=== PATIENT | male | born 1960 | race Caucasian/White ===

== ENCOUNTER 2016-12-26 22:35 | Inpatient (IN) | payer BC ==
[~2016-12-26] VITALS: Ht 180.3 cm; Wt 116.2 kg
[2016-12-26 23:22] LABS: BASO # 0.1 (0.0-0.2); BASO % 0.7 % (0.0-2.0); EOS # 0.1 (0.0-0.7); EOS % 0.5 % (0-4.0); GRAN # 11.7 (1.4-6.5); GRAN % 90.8 % (42.2-75.2); HEMOGLOBIN 16.8 g/dl (13.5-18.0); LYMPH # 0.5 (1.2-3.4); LYMPH % 4.1 % (20.0-51.0); MEAN CELL VOLUME 87 fl (80.0-100.0); MEAN CORPUSCULAR HEMOGLOBIN 29 pg (27.0-31.0); MEAN CORPUSCULAR HGB CONC 34 g/dl (33.0-37.0); MEAN PLATELET VOLUME 9.8 fl (7.4-10.4); MONO # 0.4 (0.1-0.6); MONO % 3.4 % (1.7-9.3); PLATELET COUNT 231 K/mm3 (130-400); RED BLOOD COUNT 5.75 M/mm3 (4.20-5.60); WHITE BLOOD COUNT 12.8 K/mm3 (4.8-10.8)
[2016-12-26 23:27] LABS: ADJUSTED CALCIUM 9.4 mg/dL (8.4-10.2); ALANINE AMINOTRANSFERASE 41 U/L (21-72); ALBUMIN 4.3 gm/dL (3.5-5.0); ALKALINE PHOSPHATASE 80 U/L (50-136); ANION GAP 11 mmol/L (7-16); BLOOD UREA NITROGEN 12 mg/dL (9-20); CALCIUM 9.6 mg/dL (8.4-10.2); CARBON DIOXIDE 26 mmol/L (22-30); CHLORIDE 103 mmol/L (98-107); CREATININE, serum 0.92 mg/dL (0.66-1.25); GLUCOSE 123 mg/dL (74-106); POTASSIUM 3.9 mmol/L (3.4-5.0); SODIUM 140 mmol/L (137-145); TOTAL PROTEIN 7.1 gm/dL (6.4-8.2)
[2016-12-26 23:39] LABS: INR 1.1 (0.8-3.0); PROTHROMBIN TIME 12.1 SECONDS (9.7-12.8)
[2016-12-26 23:40] LABS: TROPONIN-I < 0.012 ng/mL (0.000-0.034)
[2016-12-26 23:42] LABS: PARTIAL THROMBOPLASTIN TIME 28.2 SECONDS (26.0-37.0)
[2016-12-27] VITALS (265 sets, daily range): BP systolic 104–125; BP diastolic 66–85; PULSE 78–103; TEMP 96–101.2; O2SAT 85–100
[2016-12-27 00:50] LABS: COLLECTION METHOD CLEAN CATCH
[2016-12-27 00:56] LABS: MUCOUS Present /lpf; PH 6 (5-8); SQUAMOUS EPITHELIAL None Seen /hpf; URINE APPEARANCE Clear; URINE BACTERIA None Seen /hpf; URINE BILIRUBIN Negative (NEGATIVE); URINE BLOOD 1+ (NEGATIVE); URINE COLOR Yellow; URINE GLUCOSE Negative (NEGATIVE); URINE KETONE Negative (NEGATIVE); URINE LEUKOCYTE ESTERASE Trace (NEGATIVE); URINE PROTEIN(semi-quant) Negative (NEGATIVE); URINE UROBILINOGEN Negative (NEGATIVE)
[2016-12-27] MEDS ORDERED: TYLENOL 500MG500 MG PO (04:22)
[2016-12-27 05:37] LABS: BASO # 0.1 (0.0-0.2); BASO % 0.5 % (0.0-2.0); GRAN # 15.8 (1.4-6.5); GRAN % 91.1 % (42.2-75.2); HEMATOCRIT 46.2 % (42.0-52.0); HEMOGLOBIN 15.5 g/dl (13.5-18.0); LYMPH # 0.4 (1.2-3.4); LYMPH % 2.1 % (20.0-51.0); MEAN CELL VOLUME 88 fl (80.0-100.0); MEAN CORPUSCULAR HEMOGLOBIN 30 pg (27.0-31.0); MEAN CORPUSCULAR HGB CONC 34 g/dl (33.0-37.0); MEAN PLATELET VOLUME 9.7 fl (7.4-10.4); MONO % 5.5 % (1.7-9.3); PLATELET COUNT 224 K/mm3 (130-400); RED BLOOD COUNT 5.23 M/mm3 (4.20-5.60); WHITE BLOOD COUNT 17.3 K/mm3 (4.8-10.8)
[2016-12-27 05:49] LABS: CALCIUM 9.1 mg/dL (8.4-10.2); CREATININE, serum 0.98 mg/dL (0.66-1.25); POTASSIUM 4.3 mmol/L (3.4-5.0)
[2016-12-28 06:09] VITALS: BP 143/77; PULSE 85; TEMP 98.6
[2016-12-28 09:51] VITALS: BP 133/73; PULSE 80; TEMP 97.7
[2016-12-28 11:38] LABS: HEMATOCRIT 44.2 % (42.0-52.0); HEMOGLOBIN 14.7 g/dl (13.5-18.0); MEAN CELL VOLUME 89 fl (80.0-100.0); MEAN CORPUSCULAR HEMOGLOBIN 30 pg (27.0-31.0); MEAN CORPUSCULAR HGB CONC 33 g/dl (33.0-37.0); MEAN PLATELET VOLUME 10.1 fl (7.4-10.4); PLATELET COUNT 208 K/mm3 (130-400); RED BLOOD COUNT 4.96 M/mm3 (4.20-5.60); WHITE BLOOD COUNT 9.6 K/mm3 (4.8-10.8)
[2016-12-28 11:59] LABS: CALCIUM 9.3 mg/dL (8.4-10.2); CREATININE, serum 0.84 mg/dL (0.66-1.25)
[2016-12-28 12:42] VITALS: BP 131/78; PULSE 79; TEMP 97.5
[2016-12-28 16:22] VITALS: BP 120/74; PULSE 73; TEMP 98.6
[2016-12-28 20:30] VITALS: BP 127/73; PULSE 76; TEMP 99.5
[2016-12-29 02:29] VITALS: BP 117/81; PULSE 80; TEMP 99.1
[2016-12-29 06:08] VITALS: BP 139/80; PULSE 70; TEMP 97.8
[2016-12-29 09:11] VITALS: TEMP 98.6
[2016-12-29 09:22] LABS: BASO % 0.6 % (0.0-2.0); EOS % 0.6 % (0-4.0); GRAN # 4.5 (1.4-6.5); HEMATOCRIT 45.2 % (42.0-52.0); HEMOGLOBIN 15.1 g/dl (13.5-18.0); LYMPH # 1.2 (1.2-3.4); MEAN CELL VOLUME 88 fl (80.0-100.0); MEAN CORPUSCULAR HEMOGLOBIN 29 pg (27.0-31.0); MEAN CORPUSCULAR HGB CONC 33 g/dl (33.0-37.0); MEAN PLATELET VOLUME 10.6 fl (7.4-10.4); MONO # 1.1 (0.1-0.6); MONO % 15.4 % (1.7-9.3); PLATELET COUNT 217 K/mm3 (130-400); RED BLOOD COUNT 5.13 M/mm3 (4.20-5.60); WHITE BLOOD COUNT 6.8 K/mm3 (4.8-10.8)
[2016-12-29 09:33] LABS: ADJUSTED CALCIUM 9.3 mg/dL (8.4-10.2); ALBUMIN 3.7 gm/dL (3.5-5.0); BILIRUBIN,TOTAL 0.7 mg/dL (0.0-1.0); CALCIUM 9.1 mg/dL (8.4-10.2); POTASSIUM 3.9 mmol/L (3.4-5.0); TOTAL PROTEIN 6.8 gm/dL (6.4-8.2)
[2016-12-29 09:54] VITALS: BP 126/72; PULSE 77; TEMP 98.2
[2016-12-29 10:28] LABS: CREATININE, serum 0.92 mg/dL (0.66-1.25)
[2016-12-29] MEDS ORDERED: BACTRIM DS 8001 TAB PO (10:40)
== END 2016-12-29 13:20 | disposition home or self-care (01) | DRG 872 ==
LOC: COL.ER 22:35 → ICU 12-27 01:17 → MEDICAL 12-27 01:17 → ICU 12-27 01:17 → SURG 12-27 01:17
PROVIDERS: Family Medicine; Internal Medicine; Nurse Practitioner Family
DX: A41.9 Sepsis, unspecified organism (principal); N39.0 Urinary tract infection, site not specified; R07.89 Other chest pain; Z88.0 Allergy status to penicillin
CPT/HCPCS: 99223-AI; 99232-AI; 99239; J0696; J1170; J1580; J7030; Q9967

== ENCOUNTER → 2017-01-17 | Outpatient (REF) ==
[~2017-01-17] MED LIST: BACTRIM DS 8001 TAB PO; TYLENOL 500MG500 MG PO
[2017-01-17 12:06] LABS: THYROID STIMULATING HORMONE 2.57 uIU/mL (0.465-4.680)
== END ==
LOC: ZLAB.WCH 11:09
PROVIDERS: Family Medicine
DX: Z01.89 Encounter for other specified special examinations (principal)

== ENCOUNTER 2019-04-22 08:28 | Emergency (ER) | payer BC ==
[~2019-04-22] VITALS: Ht 180.3 cm; Wt 128.6 kg
[2019-04-22 08:42] VITALS: BP 141/83
[2019-04-22] MEDS ORDERED: PREDNISONE20 MG PO (08:48)
[2019-04-22] MEDS ORDERED: OMNICEF 300MG300 MG PO (08:48)
[2019-04-22] MEDS ORDERED: CHERATUSSIN AC240 ML PO (08:49)
[2019-04-22 09:28] VITALS: PULSE 90; TEMP 97.8
[2019-04-22] MEDS ORDERED: PRIL40 PO (09:34)
== END 2019-04-22 09:40 | disposition home or self-care (01) ==
LOC: COL.ER 08:28
DX: R05 Cough (principal); J45.909 Unspecified asthma, uncomplicated; Z85.46 Personal history of malignant neoplasm of prostate

== ENCOUNTER 2019-08-28 13:14 | Emergency (ER) | payer BC ==
[~2019-08-28] VITALS: Ht 180.3 cm; Wt 127.3 kg
[~2019-08-28 13:14] MED LIST changes: +CHERATUSSIN AC240 ML PO; +OMNICEF 300MG300 MG PO; +PREDNISONE20 MG PO; +PRIL40 PO
[2019-08-28 13:17] VITALS: BP 122/82; TEMP 97.6
[2019-08-28] MEDS ORDERED: FLEXERIL 1010 MG/TAB PO (13:47)
[2019-08-28 15:04] VITALS: PULSE 86
== END 2019-08-28 15:04 | disposition home or self-care (01) ==
LOC: COL.ER 13:14
DX: M54.5 Low back pain (principal); Z88.0 Allergy status to penicillin
CPT/HCPCS: J1100; J1170; J1885

== ENCOUNTER 2020-11-21 00:33 | Emergency (ER) | payer BC ==
[~2020-11-21] VITALS: Ht 180.3 cm; Wt 125.0 kg
[~2020-11-21 00:33] MED LIST changes: +FLEXERIL 1010 MG/TAB PO
[2020-11-21 00:46] VITALS: TEMP 98.1
[2020-11-21 01:29] LABS: HEMATOCRIT 48.6 % (42.0-52.0); HEMOGLOBIN 16.6 g/dl (13.5-18.0); MEAN CELL VOLUME 85 fl (80.0-100.0); MEAN CORPUSCULAR HEMOGLOBIN 29 pg (27.0-31.0); MEAN CORPUSCULAR HGB CONC 34 g/dl (33.0-37.0); MEAN PLATELET VOLUME 9.7 fl (7.4-10.4); PLATELET COUNT 338 K/mm3 (130-400); RED BLOOD COUNT 5.75 M/mm3 (4.20-5.60); REDCELL DISTRIBUTION WIDTH-CV 12.3 % (11.5-14.5)
[2020-11-21 02:02] LABS: ALBUMIN 3.9 gm/dL (3.4-4.8); BILIRUBIN,TOTAL 0.7 mg/dL (0.2-1.2); C-REACTIVE PROTEIN 1.9 mg/dL (0.00-0.50); CALCIUM 9.7 mg/dL (8.4-10.2); CREATININE, serum 0.93 mg/dL (0.72-1.25); TOTAL PROTEIN 7.5 gm/dL (6.2-8.1)
[2020-11-21 02:03] LABS: BAND 2 % (0-10); EOSINOPHIL 1 % (0-4); LYMPHOCYTE 22 % (20.0-51.0); NEUTROPHILS 61 % (42.0-75.2); PLATELET ESTIMATE NORMAL (NORMAL)
[2020-11-21 02:34] LABS: COLLECTION METHOD CLEAN CATCH
[2020-11-21 02:40] LABS: MUCOUS Present /lpf; PH 5 (5-8); SQUAMOUS EPITHELIAL None Seen /hpf; URINE APPEARANCE Clear; URINE BACTERIA None Seen /hpf; URINE BILIRUBIN Negative (NEGATIVE); URINE BLOOD Negative (NEGATIVE); URINE COLOR Yellow; URINE GLUCOSE Negative (NEGATIVE); URINE KETONE Negative (NEGATIVE); URINE LEUKOCYTE ESTERASE Negative (NEGATIVE); URINE NITRATE Negative (NEGATIVE); URINE PROTEIN(semi-quant) Negative (NEGATIVE); URINE RBC 0-2 /hpf; URINE UROBILINOGEN Negative (NEGATIVE)
[2020-11-21] MEDS ORDERED: FLEXERIL 1010 MG/TAB PO (04:46)
[2020-11-21] MEDS ORDERED: PROTONIX 40MG T40 MG PO (04:46)
[2020-11-21 05:35] VITALS: BP 133/76; PULSE 84
== END 2020-11-21 05:35 | disposition home or self-care (01) ==
LOC: COL.ER 00:33
PROVIDERS: Emergency Medicine
DX: M62.830 Muscle spasm of back (principal); R10.13 Epigastric pain; E11.9 Type 2 diabetes mellitus without complications
CPT/HCPCS: J1885; J2060; J2270; J2405; J7030; Q9967

== ENCOUNTER 2021-02-05 08:21 | Outpatient (CLI) | payer BC ==
[2021-02-05] VITALS (7 sets, daily range): BP systolic 132–144; BP diastolic 66–81; PULSE 81–90; TEMP 100.2–100.7
[~2021-02-05] VITALS: Ht 180.3 cm; Wt 135.0 kg
[~2021-02-05 08:21] MED LIST changes: +PROTONIX 40MG T40 MG PO
[2021-02-05] MEDS ORDERED: LIPITOR 10MG10 MG PO (10:33)
[2021-02-05] MEDS ORDERED: RT ALBUTER2.5 MG/0.5 IH (10:33)
[2021-02-05] MEDS ORDERED: ATROVENT INHALE14 GM IH (10:33)
[2021-02-05] MEDS ORDERED: ASPIRIN E.C. 8181 MG PO (10:33)
[2021-02-05] MEDS ORDERED: DECADRON6 MG PO (10:34)
[2021-02-05] MEDS ORDERED: TESSALON PERLE200 MG PO (10:34)
[2021-02-05] MEDS ORDERED: ATROVENT I0.2 MG/1 M IH (10:35)
[2021-02-05] MEDS ORDERED: GLUCOPHAGE XR500 M1 PO (10:35)
[2021-02-05] MEDS ORDERED: ZITHROMAX500 M2 PO (10:37)
[2021-02-05] MEDS ORDERED: PROTONIX 40MG T40 MG PO (10:37)
--- NOTE | 2021-02-05 11:30 | NUR ---
Pt tolerated infusion and 1 hr obs period without issue. INT DC'd with catheter intact. He is escorted out to ED entrance with steady gait.
== END 2021-02-05 11:30 | disposition home or self-care (01) ==
LOC: EUO 08:21
DX: U07.1 COVID-19 (principal); E66.9 Obesity, unspecified; E11.9 Type 2 diabetes mellitus without complications; J98.4 Other disorders of lung
CPT/HCPCS: M0245

== ENCOUNTER 2021-09-09 09:10 | Outpatient (RCR) ==
[~2021-09-09 09:10] MED LIST changes: +ASPIRIN E.C. 8181 MG PO; +ATROVENT I0.2 MG/1 M IH; +ATROVENT INHALE14 GM IH; +DECADRON6 MG PO; +GLUCOPHAGE XR500 M1 PO; +LIPITOR 10MG10 MG PO; +RT ALBUTER2.5 MG/0.5 IH; +TESSALON PERLE200 MG PO; +ZITHROMAX500 M2 PO
== END 2021-10-09 | disposition home or self-care (01) ==
LOC: WSOH
DX: S67.191A Crushing injury of left index finger, initial encounter (principal); Y99.0 Civilian activity done for income or pay; E78.00 Pure hypercholesterolemia, unspecified; E11.9 Type 2 diabetes mellitus without complications

== ENCOUNTER 2021-09-09 09:27 | Outpatient (RCR) | payer OTHER | END 2021-10-09 | disposition home or self-care (01) | LOC: WSOH | DX: S67.191D Crushing injury of left index finger, subsequent encounter (principal); Y99.0 Civilian activity done for income or pay; E78.00 Pure hypercholesterolemia, unspecified; I10 Essential (primary) hypertension ==

== ENCOUNTER 2023-01-19 11:32 | Day surgery (SDC) | payer BC ==
[~2023-01-19] VITALS: Ht 177.8 cm; Wt 131.9 kg
[2023-01-19 12:01] VITALS: BP 152/84; PULSE 71; TEMP 98
[2023-01-19] MEDS ORDERED: LEXAPRO 10MG10 MG PO (12:05)
[2023-01-19] MEDS ORDERED: THE MEDICINE S200 M2 PO (12:06)
[2023-01-19] MEDS ORDERED: TYLENOL 325MG325 MG PO (12:07)
[2023-01-19] MEDS ORDERED: FLONASE NASAL S16 GM NS (14:45)
[2023-01-19] MEDS ORDERED: MELATONIN3 M1 (14:46)
[2023-01-19] MEDS ORDERED: OSTEO-BI-FLEX 21 TAB PO (14:47)
--- NOTE | 2023-01-19 15:07 | NUR ---
1500: PATIENT AMBULATED TO BATHROOM WITH STEADY GAIT. BACK IN ROOM SITTING UP IN CHAIR. CALL LIGHT IN REACH. AT BEDSIDE.
[2023-01-19] MEDS ORDERED: NORCO 325 MG-51 TAB PO (16:57)
[2023-01-19] MEDS ORDERED: ASPIRIN 81M81 MG/TA2 PO (16:58)
[2023-01-19] MEDS ORDERED: CEPHALEXIN500 M1 PO (16:58)
[2023-01-19 17:30] VITALS: BP 151/84; PULSE 82; TEMP 97.8
[2023-01-19 17:43] VITALS: TEMP 97.6
[2023-01-19 17:45] VITALS: BP 144/82; PULSE 69
--- NOTE | 2023-01-19 18:10 | NUR ---
1730-REPORT OBTAINED FROM JENA CLARK. PATIENT ARRIVED TO [facility] VIA CART, ALERT AND ORIENTED ON ARRIVAL. VITAL SIGNS TAKEN, VSS. PT DENIES PAIN OR NAUSEA, TOLERATING PO LIQUIDS WELL. SPOUSE BROUGHT TO BEDSIDE. 1745-VSS. DR. GARCIA PRESENT TO DISCUSS PROCEDURE WITH PT AND SPOUSE, QUESTIONS INVITED. DISCHARGE INSTRUCTIONS REVIEWED. 1755-PT ASSISTED TO SIDE OF BED AND AMBULATED TO BATHROOM WITH SBA. PT DRESSED WITH SPOUSAL ASSIST. IV CATHETER DISCONTINUED, CATHETER TIP INTACT. PRESSURE HELD AND BANDAGE APPLIED. 1800-PATIENT DISCHARGED HOME TO [facility] VIA WHEELCHAIR, ACCOMPANIED BY SPOUSE. ALL BELONGINGS AND DC PAPERWORK SENT WITH PT.
== END 2023-01-19 18:00 | disposition home or self-care (01) ==
LOC: SDCO 11:32
DX: S83.242A Other tear of medial meniscus, current injury, left knee, initial encounter (principal); M94.8X6 Other specified disorders of cartilage, lower leg; K21.9 Gastro-esophageal reflux disease without esophagitis; E66.9 Obesity, unspecified; Z79.899 Other long term (current) drug therapy; Z68.41 Body mass index [BMI] 40.0-44.9, adult
CPT/HCPCS: J0665; J0690; J1100; J2405; J2704; J3010; J7120